=== PATIENT | female | born 1945 | race Caucasian/White ===

== ENCOUNTER → 2018-08-30 | Outpatient (CLI) | payer MEDICARE, OTHER ==
[2018-08-30] VITALS (7 sets, daily range): BP systolic 147–174; BP diastolic 64–80
[~2018-08-30] VITALS: Ht 154.9 cm; Wt 77.1 kg
[~2018-08-30] MED LIST: ACETAMINOPHEN 325 MG TABLET PO ONE; ASPI-999 PO; CATHETER FLUSH 10 ML SYR IV PRN; DIVA125T32 PO; FUROSEMIDE 40 MG/4 ML INJ (LASIX) IV ONE; FUROSEMIDE 40 MG/4 ML INJ (LASIX) ONE; GUAI1TBM19 PO; LEVO50TA6 PO; METF-399 PO; METO-333 PO; NS IV 500 ML 500 ML IV SCH; PRAV40TA2 PO; PREG75CA PO; RT-ALBUINH IH; diphenhydrAMINE 25 MG TAB (BENADRYL) PO ONE
--- NOTE | 2018-08-30 18:50 | NUR ---
PATIENT TAKEN TO ROOM #414 VIA W/C WITH REPORT GIVEN TO William VELASQUEZ, PATIENT A/O, DAUGHTER AT BEDSIDE, IV PATENT, BLOOD INFUSING PER PUMP AT 125/HR. NO CHANGE, NO C/O.
[2018-08-30 23:44] LABS: HEMOGLOBIN 7.7 G/DL (11.5-16.0); MEAN PLATELET VOLUME 8.6 FL (7.4-10.4); RED CELL DISTRIBUTION WIDTH 20.2 % (10.0-14.5); WHITE BLOOD COUNT 6.1 10^3/uL (4.3-11.0)
--- NOTE | 2018-08-31 00:15 | NUR ---
Received Patient from Out Patient services at beginning of shift to complete blood transfusion. 2units PRBCs received and tolerated well. Repeat H& obtained with results of called to Dr. Latham. Patient to have repeat blood work this Wednesday. Patient and [id number] VU and will call physician office in am to set up appointment. IV d/c. Discharged to home per family vehicle.
== END ==
LOC: SDC 15:23
PROVIDERS: ATTEND Nurse Practitioner Family
DX: D64.9 Anemia, unspecified (principal)
CPT/HCPCS: 36415; 36430; 85027; 86850; 86900; 86901; 86920; 96374

== ENCOUNTER → 2018-08-30 | Outpatient (CLI) | payer MEDICARE, OTHER ==
[~2018-08-30] MED LIST changes: -ACETAMINOPHEN 325 MG TABLET PO ONE; -CATHETER FLUSH 10 ML SYR IV PRN; -FUROSEMIDE 40 MG/4 ML INJ (LASIX) IV ONE; -FUROSEMIDE 40 MG/4 ML INJ (LASIX) ONE; -NS IV 500 ML 500 ML IV SCH; -diphenhydrAMINE 25 MG TAB (BENADRYL) PO ONE
[2018-08-30 14:46] LABS: BASOPHILS % (AUTO) 1 % (0-10); EOSINOPHILS # (AUTO) 0.4 10^3/uL (0.0-0.3); EOSINOPHILS % (AUTO) 6 % (0-10); HEMATOCRIT 22 % (35-52); LYMPHOCYTES # (AUTO) 1.6 X 10^3 (1.0-4.0); LYMPHOCYTES % (AUTO) 25 % (12-44); MEAN CORPUSCULAR HEMOGLOBIN 20 PG (25-34); MEAN CORPUSCULAR HGB CONC 28 G/DL (32-36); MEAN CORPUSCULAR VOLUME 73 FL (80-99); MONOCYTES # (AUTO) 0.3 X 10^3 (0.0-1.0); MONOCYTES % (AUTO) 6 % (0-12); NEUTROPHILS # (AUTO) 3.9 X 10^3 (1.8-7.8); NEUTROPHILS % (AUTO) 63 % (42-75); PLATELET COUNT 421 10^3/uL (130-400); RED CELL DISTRIBUTION WIDTH 18.2 % (10.0-14.5); WHITE BLOOD COUNT 6.2 10^3/uL (4.3-11.0)
[2018-08-30 15:14] LABS: ALANINE AMINOTRANSFERASE 10 U/L (0-55); ALBUMIN 3.7 GM/DL (3.2-4.5); ALKALINE PHOSPHATASE 98 U/L (40-136); BILIRUBIN,TOTAL 0.2 MG/DL (0.1-1.0); BUN/CREATININE RATIO 16; CALCIUM 8.8 MG/DL (8.5-10.1); CARBON DIOXIDE 24 MMOL/L (21-32); CHLORIDE 105 MMOL/L (98-107); CHOLESTEROL 155 MG/DL (< 200); CREATININE SERUM 0.83 MG/DL (0.60-1.30); GFR ESTIMATED > 60; GLUCOSE 121 MG/DL (70-105); HDL CHOLESTEROL 45 MG/DL (40-60); POTASSIUM 4.3 MMOL/L (3.6-5.0); SODIUM 136 MMOL/L (135-145); TOTAL PROTEIN 7.8 GM/DL (6.4-8.2); TRIGLYCERIDES 131 MG/DL (<150); VLDL CHOLESTEROL 26 MG/DL (5-40)
[2018-08-30 15:35] LABS: FREE T4 (FREE THYROXINE) 0.94 NG/DL (0.70-1.48); VALPROIC ACID 16.2 UG/ML (50.0-100.0)
== END ==
LOC: LAB 14:27
PROVIDERS: ATTEND Nurse Practitioner Family
DX: E03.9 Hypothyroidism, unspecified (principal); D64.9 Anemia, unspecified; Z79.899 Other long term (current) drug therapy
CPT/HCPCS: 36415; 80053; 80061; 80164; 84439; 84443; 85025; 86850; 86900; 86901

== ENCOUNTER 2018-09-19 10:36 | Outpatient (RCR) | payer MEDICARE ==
[2018-09-12 11:09] VITALS: BP 168/69
[2018-09-12] MEDS: FERRIC CARBOXYMALTOSE INJ 750 MG in NS (IVPB) 250 ML IV SCH (11:23)
[~2018-09-19] VITALS: Ht 154.9 cm; Wt 77.1 kg
[2018-09-19] MEDS: FERRIC CARBOXYMALTOSE INJ 750 MG in NS (IVPB) 250 ML IV SCH (10:58)
[2018-09-19 11:00] VITALS: BP 142/68
== END 2018-09-19 11:30 | disposition home or self-care (01) ==
LOC: SDC 10:36
PROVIDERS: ATTEND Nurse Practitioner Family
DX: K57.92 Diverticulitis of intestine, part unspecified, without perforation or abscess without bleeding (principal); D50.9 Iron deficiency anemia, unspecified
CPT/HCPCS: 96365

== ENCOUNTER 2018-10-20 12:00 | Outpatient (CLI) | payer MEDICARE ==
[~2018-10-20] VITALS: Ht 154.9 cm; Wt 77.1 kg
== END 2018-10-20 12:53 | disposition home or self-care (01) ==
LOC: PREOP 12:00
PROVIDERS: ATTEND Surgery
DX: Z01.818 Encounter for other preprocedural examination (principal)